=== PATIENT | female | born 1935 | race Caucasian/White ===

== ENCOUNTER 2017-07-12 06:54 | Inpatient (IN) | payer MEDICARE, OTHER ==
[~2017-07-12 06:54] MED LIST: CEFAZOLIN 2 GM/50 ML (PMX) 50 ML IVPB; DEXAMETHASONE 1 MG TAB PO
[2017-07-12] MEDS ORDERED: EPHEDrine SULFATE 50 MG/5 ML SYG (07:00)
[2017-07-12] MEDS ORDERED: BUPIVACAINE 0.5%/EPI (SDV) 30 ML INJ (07:00)
[2017-07-12] MEDS ORDERED: CEFAZOLIN 1 GM INJ (07:00)
[2017-07-12] MEDS ORDERED: TOBRAMYCIN 1.2 GM POWDER (07:05)
[2017-07-12] MEDS: DEXAMETHASONE 1 MG TAB PO (07:48)
[2017-07-12] MEDS: traMADol 50 MG TAB PO (07:48)
[2017-07-12] MEDS: GABAPENTIN 300 MG CAP PO ×2 (07:48→20:31)
[2017-07-12] MEDS: BUPIVACAINE 0.5% (SDV) 30 ML, morphine SULFATE (PF) 8 MG, EPINEPHrine 0.3 MG, KETOROLAC... IRR ×2 (08:30→11:20)
[2017-07-12] MEDS ORDERED: MIDAZOLAM 1 MG/ML 2 ML INJ (08:55)
[2017-07-12] MEDS ORDERED: ROPIVACAINE 0.5 % 30 ML VIAL (08:55)
[2017-07-12] MEDS ORDERED: FENTAnyl 50 MCG/ML VIAL (09:19)
[2017-07-12] MEDS: CEFAZOLIN 2 GM/50 ML (PMX) 50 ML IVPB (09:30)
[2017-07-12] MEDS: TRANEXAMIC ACID 1,000 MG in DEXTROSE 5% 100 ML IVPB (09:30)
[2017-07-12] MEDS: BUPIVACAINE 0.5%/EPI (SDV) 30 ML INJ INJ (09:37)
[2017-07-12] MEDS ORDERED: PROPOFOL 20 ML (09:56)
[2017-07-12] MEDS ORDERED: LIDOCAINE 2% (SDV) 5 ML INJ (09:56)
[2017-07-12] MEDS ORDERED: SUCCINYLCHOLINE CHLORIDE 100 MG/5 ML SYG IV (09:56)
[2017-07-12] MEDS ORDERED: DEXAMETHASONE 4 MG/ML 1 ML INJ (09:57)
[2017-07-12] MEDS ORDERED: ONDANSETRON 4 MG INJ (09:57)
[2017-07-12] MEDS ORDERED: FAMOTIDINE 20 MG INJ (09:57)
[2017-07-12] MEDS: CA CHLORIDE 10% 10 ML SYRINGE (10:10)
[2017-07-12] MEDS: THROMBIN 5000 UNIT VIAL (10:10)
[2017-07-12] MEDS: POLYMYXIN/BACITRACIN 1L IRRIG (10:11)
[2017-07-12] MEDS ORDERED: HYDROmorphONE 2 MG/ML SYG (10:21)
[2017-07-12] MEDS ORDERED: METOCLOPRAMIDE 10 MG INJ (10:21)
[2017-07-12] MEDS ORDERED: PROCHLORPERAZINE 10 MG INJ IV (10:30)
[2017-07-12] MEDS ORDERED: DIPHENHYDRAMINE 50 MG INJ IV ×2 (10:30→11:30)
[2017-07-12] MEDS ORDERED: HYDROmorphONE (0.2 MG/ML) 10ML SYG IV ×3 (10:30)
[2017-07-12] MEDS ORDERED: OXYCODONE/ACETAMINOPHEN (5/325) TAB PO ×2 (10:30→11:30)
[2017-07-12] MEDS ORDERED: ONDANSETRON 4 MG INJ IV ×2 (10:30→11:30)
[2017-07-12] MEDS ORDERED: FENTAnyl 50 MCG/ML VIAL IV (10:30)
[2017-07-12] MEDS ORDERED: MEPERIDINE 25 MG INJ IV (10:30)
[2017-07-12] MEDS ORDERED: KETOROLAC 15 MG INJ IV (11:30)
[2017-07-12] MEDS ORDERED: morphine 2 MG INJ IV ×2 (11:30)
[2017-07-12] MEDS ORDERED: ACETAMINOPHEN 500 MG TAB PO (11:30)
[2017-07-12] MEDS ORDERED: MAGNESIUM HYDROXIDE 30ML CUP PO (11:30)
[2017-07-12] MEDS ORDERED: ZOLPIDEM 5 MG TAB PO (11:30)
[2017-07-12] MEDS ORDERED: LABETALOL HCL 20MG INJ IV (12:00)
[2017-07-12] MEDS: TRANEXAMIC ACID 1,000 MG in DEXTROSE 5% 100 ML IV (12:22)
[2017-07-12] MEDS: hydrALAzine 20 MG INJ IV (12:23)
[2017-07-12] MEDS: CEFAZOLIN 1 GM/50 ML (PMX) 50 ML IVPB ×2 (13:26→18:44)
[2017-07-12] MEDS: DEXAMETHASONE 2 MG TAB PO ×2 (13:28→18:44)
[2017-07-12] MEDS: SENNA/DOCUSATE NA (8.6MG/50MG) TAB PO (20:31)
[2017-07-12] MEDS: ATORVASTATIN 20 MG TAB PO (20:31)
[2017-07-13] MEDS: DEXAMETHASONE 2 MG TAB PO ×2 (00:34→05:20)
[2017-07-13] MEDS: CEFAZOLIN 1 GM/50 ML (PMX) 50 ML IVPB (03:29)
[2017-07-13] MEDS: OXYCODONE/ACETAMINOPHEN (5/325) TAB PO ×2 (05:19→09:53)
[2017-07-13] MEDS: LEVOTHYROXINE 125 MCG TAB PO (06:45)
[2017-07-13] MEDS ORDERED: FLUTICASONE 0.05% 16 GM NAS SPRAY NASAL (09:00)
[2017-07-13] MEDS: SENNA/DOCUSATE NA (8.6MG/50MG) TAB PO (09:05)
[2017-07-13] MEDS: ASPIRIN 81 MG TAB PO (09:05)
[2017-07-13] MEDS: ESCITALOPRAM 10 MG TAB PO (09:06)
== END 2017-07-13 12:00 | disposition home or self-care (01) | DRG 483 ==
LOC: REC 06:54 → MS1 12:55
PROC: 0RRK00Z Replacement of Left Shoulder Joint with Reverse Ball and Socket Synthetic Substitute, Open Approach (ICD-10-PCS; principal; 2017-07-12 08:30)
PROC: 0RPK0JZ Removal of Synthetic Substitute from Left Shoulder Joint, Open Approach (ICD-10-PCS; 2017-07-12 08:30)
DX: T84.028A Dislocation of other internal joint prosthesis, initial encounter (principal); Y83.2 Surgical operation with anastomosis, bypass or graft as the cause of abnormal reaction of the patient, or of later complication, without mention of misadventure at the time of the procedure; Y92.238 Other place in hospital as the place of occurrence of the external cause; J45.909 Unspecified asthma, uncomplicated; R73.02 Impaired glucose tolerance (oral); F39 Unspecified mood [affective] disorder; H81.10 Benign paroxysmal vertigo, unspecified ear; E03.9 Hypothyroidism, unspecified; E78.5 Hyperlipidemia, unspecified; Z98.1 Arthrodesis status
CPT/HCPCS: 73030; 86999; 87070; 87075; 88300; 97165

== ENCOUNTER 2018-03-14 08:16 | Observation (INO) | payer MEDICARE, OTHER ==
[~2018-03-14 08:16] MED LIST changes: -CEFAZOLIN 2 GM/50 ML (PMX) 50 ML IVPB; -DEXAMETHASONE 1 MG TAB PO; +SEVOFLURANE 15 MIN
[2018-03-14] MEDS ORDERED: BUPIVACAINE 0.5% (SDV) 30 ML, morphine SULFATE (PF) 8 MG, EPINEPHrine 0.3 MG, KETOROLAC... IRR (08:30)
[2018-03-14] MEDS: TRANEXAMIC ACID 1,000 MG in DEXTROSE 5% 100 ML IVPB (08:30)
[2018-03-14] MEDS: CEFAZOLIN 2 GM/50 ML (PMX) 50 ML IVPB (08:30)
[2018-03-14] MEDS: DEXAMETHASONE 1 MG TAB PO (08:52)
[2018-03-14] MEDS: GABAPENTIN 300 MG CAP PO ×2 (08:52→21:11)
[2018-03-14] MEDS ORDERED: MIDAZOLAM 1 MG/ML 2 ML INJ (10:02)
[2018-03-14] MEDS ORDERED: FENTAnyl 50 MCG/ML VIAL (10:02)
[2018-03-14] MEDS ORDERED: ROPIVACAINE 0.5 % 30 ML VIAL (10:03)
[2018-03-14] MEDS ORDERED: THROMBIN 5000 UNIT VIAL (10:20)
[2018-03-14] MEDS ORDERED: POLYMYXIN/BACITRACIN 1L IRRIG (10:21)
[2018-03-14] MEDS ORDERED: CA CHLORIDE (GM) 10% 10 ML INJ (10:21)
[2018-03-14] MEDS ORDERED: DEXAMETHASONE 4 MG/ML 1 ML INJ (11:19)
[2018-03-14] MEDS ORDERED: SUCCINYLCHOLINE CHLORIDE 100 MG/5 ML SYG IV (11:19)
[2018-03-14] MEDS ORDERED: CEFAZOLIN 1 GM INJ (11:19)
[2018-03-14] MEDS ORDERED: FAMOTIDINE 20 MG INJ (11:19)
[2018-03-14] MEDS ORDERED: ROCURONIUM 50 MG INJ (11:19)
[2018-03-14] MEDS ORDERED: LIDOCAINE 2% (SDV) 5 ML INJ (11:19)
[2018-03-14] MEDS ORDERED: METOCLOPRAMIDE 10 MG INJ (11:19)
[2018-03-14] MEDS ORDERED: ONDANSETRON 4 MG INJ (11:19)
[2018-03-14] MEDS ORDERED: PROPOFOL 20 ML (11:19)
[2018-03-14] MEDS ORDERED: HYDROmorphONE 2 MG/ML SYG (11:25)
[2018-03-14] MEDS ORDERED: hydrALAzine 20 MG INJ (11:27)
[2018-03-14] MEDS ORDERED: EPHEDrine 50 MG INJ (12:08)
[2018-03-14] MEDS ORDERED: hydrALAzine 20 MG INJ IV (12:30)
[2018-03-14] MEDS ORDERED: oxyCODONE 5 MG TAB PO ×2 (12:30)
[2018-03-14] MEDS ORDERED: KETOROLAC 15 MG INJ IV (12:30)
[2018-03-14] MEDS ORDERED: ALBUTEROL HFA 8 GM INHALER INH (12:30)
[2018-03-14] MEDS ORDERED: HYDROmorphONE 1 MG/ML SYG IV (12:30)
[2018-03-14] MEDS ORDERED: PROCHLORPERAZINE 10 MG INJ IV (12:30)
[2018-03-14] MEDS ORDERED: HYDROmorphONE 1 MG/5 ML IV SYRINGE IV ×3 (12:30)
[2018-03-14] MEDS ORDERED: LOPERAMIDE 2 MG CAP PO (12:30)
[2018-03-14] MEDS ORDERED: LABETALOL HCL 20MG INJ IV (12:30)
[2018-03-14] MEDS ORDERED: FENTAnyl 50 MCG/ML VIAL IV (12:30)
[2018-03-14] MEDS ORDERED: ONDANSETRON 4 MG INJ IV ×2 (12:30)
[2018-03-14] MEDS ORDERED: MAGNESIUM HYDROXIDE 30ML CUP PO (12:30)
[2018-03-14] MEDS ORDERED: NACL 0.9% 3 ML SYG IV (12:30)
[2018-03-14] MEDS ORDERED: DIPHENHYDRAMINE 50 MG INJ IV ×2 (12:30)
[2018-03-14] MEDS ORDERED: MEPERIDINE 25 MG INJ IV (12:30)
[2018-03-14] MEDS ORDERED: NEOSTIGMINE 3 MG/3 ML SYRINGE (12:33)
[2018-03-14] MEDS ORDERED: GLYCOPYRROLATE 0.4 MG INJ (12:33)
[2018-03-14] MEDS: CEFAZOLIN 1 GM/50 ML (PMX) 50 ML IVPB ×2 (13:57→21:11)
[2018-03-14] MEDS: TRANEXAMIC ACID 1,000 MG in SOD CHLORIDE 0.9% 100 ML IVPB (14:24)
[2018-03-14] MEDS: ACETAMINOPHEN 500 MG TAB PO (17:19)
[2018-03-14] MEDS: DEXAMETHASONE 2 MG TAB PO (17:19)
[2018-03-14] MEDS: SENNA/DOCUSATE NA (8.6MG/50MG) TAB PO (21:11)
[2018-03-14] MEDS: MONTELUKAST 10 MG TAB PO (21:11)
[2018-03-15] MEDS: ACETAMINOPHEN 500 MG TAB PO ×3 (00:34→11:41)
[2018-03-15] MEDS: DEXAMETHASONE 2 MG TAB PO ×3 (00:35→11:41)
[2018-03-15] MEDS: CEFAZOLIN 1 GM/50 ML (PMX) 50 ML IVPB (05:12)
[2018-03-15] MEDS: oxyCODONE 5 MG TAB PO ×2 (08:22→11:58)
[2018-03-15] MEDS: TRIAMTERENE/HCTZ (37.5-25) CAP PO (09:06)
[2018-03-15] MEDS: SENNA/DOCUSATE NA (8.6MG/50MG) TAB PO (09:06)
== END 2018-03-15 13:50 | disposition home or self-care (01) ==
LOC: REC 08:16 → MS1 15:14
DX: T84.028A Dislocation of other internal joint prosthesis, initial encounter (principal); Y83.8 Other surgical procedures as the cause of abnormal reaction of the patient, or of later complication, without mention of misadventure at the time of the procedure
CPT/HCPCS: 23473; 73030; 86999; 99217